=== PATIENT | female | born 1975 | race Caucasian/White ===

== ENCOUNTER → 2018-01-17 12:32 | Outpatient (CLI) | payer MEDICAID, SELFPAY ==
[2015-05-27 04:29] VITALS: BMI 27.1
[2018-01-17 13:15] LABS: Absolute Lymphocyte Count 1.61 X10^3/ul (0.83-4.51); Absolute Neutrophil Count 3.8 X10^3/uL (2.0-7.7); Basophil# 0.03 X10^3/uL; Basophil% 0.5 % (0-1); Eosinophil# 0.06 X10^3/uL; Hemoglobin 13.6 g/dl (12.0-15.0); Lymphocyte # 1.61 X10^3/ul (4.0); Lymphocyte % 27.2 % (19-41); Mean Corp Hgb Conc 33.2 g/gl (32-36); Mean Corpuscular Hgb 30.2 pg (27.0-32.0); Mean Corpuscular Volume 90.9 fL (81-99); Monocyte# 0.38 X10^3/uL; Monocyte% 6.4 % (0-10); Neutrophil # 3.83 X10^3/uL (2.7-7.7); Neutrophil % 64.9 % (47-70); POSITIVE COUNT NO; POSITIVE DIFFERENTIAL NO; POSITIVE MORPHOLOGY NO; Platelet Count 224 K/mm3 (150-450); RBC Distribution Width CV 12.7 % (11.6-14.6); RBC Distribution Width SD 41.9 fl (35.1-43.9); Red Blood Count 4.51 M/mm3 (4.2-5.4); White Blood Count 5.9 K/mm3 (4.4-11.0)
[2018-01-17 13:42] LABS: Hemoglobin A1c 5.2 % (4.2-6.3)
[2018-01-17 13:54] LABS: Vitamin D,25 Hydroxy 49.8 ng/mL (29.95-100.01)
[2018-01-17 14:17] LABS: Fibrinogen 301 mg/dl (203-444)
[2018-01-17 14:54] LABS: ALB/GLOB Ratio 1.1 RATIO (0.9-2.4); AST(SGOT) 16 U/L (15-37); Alanine Aminotransfer ALT/SGPT 22 U/L (13-56); Albumin, Serum 3.7 g/dL (3.2-5.0); Alkaline Phosphatase 46 U/L (45-117); Anion Gap 8 (5-15); BUN 13 mg/dL (7-18); CRP 7.01 mg/L (0.0-3.0); Calcium,Total 8.7 mg/dL (8.5-10.1); Chloride 108 mmol/L (98-107); Cholesterol 206 mg/dL (200); Creatinine, Serum 0.81 mg/dL (0.55-1.02); EST Glomerular Filtration Rate 83 mL/min (>60); Est Glom Filt Rate - Afr Amer 100 mL/min (>60); Estradiol 34.2 pg/mL; Ferritin 24 ng/mL (8-252); Free T3 2.2 pg/mL (2.18-3.98); Globulin 3.4 g/dL (2.2-4.2); Glucose 95 mg/dL (74-106); High Density Lipoprotein 47 mg/dL; Iron 100 ug/dL (50-170); Iron Binding Capacity,Total 308 ug/dL (250-450); Magnesium 1.9 mg/dL (1.6-2.6); Potassium 4.2 mmol/L (3.5-5.1); Protein, Total 7.1 g/dL (6.4-8.2); Sodium Level 142 mmol/L (136-145); T4 Free Direct 0.97 ng/dL (0.76-1.46); Thyroid Stim Hormone (TSH) 1.73 uIU/mL (0.358-3.74); Triglycerides 164 mg/dL; Uric Acid 5.5 mg/dL (2.6-6.0); Very Low Density Lipoprotein 33 mg/dL (5-40)
[2018-01-19 12:02] LABS: Thyroglobulin Antibody < 1.0 IU/mL (0.0-0.9); Thyroid Peroxidase AB 9 IU/mL (0-34)
--- OUTSIDE RECORDS SUMMARY | 2018-03-12 19:09 | XMS RPT_ITS ---
:1975 Author Organization [facility] Care Team Providers Name Role Phone BHAVIN, JANELLE Attending Unavailable BHAVIN, JANELLE Referring Unavailable Primay Care Physicia, No Primary Care Unavailable PROBLEMS PROBLEMS DATE TYPE CONDITION / CODE ATTENDING STATUS SOURCE 01/17/2018 Unknown E03.9 - BHAVIN, Active [place] Hypothyroidism, [facility] unspecified / Hospital E03.9(ICD-10) Repository 01/17/2018 Unknown E34.9 - Endocrine BHAVIN, Active [place] disorder, [facility] unspecified / Hospital E34.9(ICD-10) Repository 01/17/2018 Unknown E61.1 - Iron BHAVIN, 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1810 11.6-14.6 % Normal RDW CV 12.7 LAB L100.1820 35.1-43.9 fl Normal RDW SD 41.9 LAB L100.1900 150-450 K/mm3 Normal PLT 224 LAB L100.2000 6.2-12.0 fl Normal MPV 11.0 LAB L100.2100 47-70 % Normal NEUT% 64.9 LAB L100.2200 19-41 % Normal LY% 27.2 LAB L100.2300 0-10 % Normal MONO% 6.4 LAB L100.2400 0-5 % Normal EO% 1.0 LAB L100.2500 0-1 % Normal BASO% 0.5 LAB L100.2550 0.0-0.9 % Normal IM GRAN % 0.000 Result Comment: IG% - Immature Granulocytes (promyelocytes, myelocytes and metamyelocytes) > 1% indicates that a LEFT SHIFT is Present. LAB L100.2620 2.0-7.7 X10 3/uL Normal Absolute Neut 3.8 LAB L100.2720 0.83-4.51 X10 3/ul Normal Absolute Lymph 1.61 Performed By: #### L100.0100 #### [facility] [address] [place], [address] HEMOGLOBIN A1C Collected: 01/17/2018 Status: F Source: [place] 12:38 PM [facility] REPOSITORY TYPE CODE TESTS RESULT OUT OF RANGE REFERENCE UNITS LAB L501.9985 4.2-6.3 % Normal HGB A1C 5.2 Performed By: #### L501.9985 #### [facility] [address] [place], [address] VITAMIN D,25 HYDROXY Collected: 01/17/2018 Status: F Source: [place] 12:38 PM [facility] REPOSITORY TYPE CODE TESTS RESULT OUT OF RANGE REFERENCE UNITS LAB L506.1000 29.95-100.01 ng/mL Normal Vitamin D 49.8 25-OH Result Comment: Vitamin D 25(OH) Status Range Deficiency <20 ng/mL (50nmol/L) Insuffciency 20 - 30 ng/mL (50 - 75 nmol/L) Sufficiency 30 - 100 ng/mL (75 - 250 nmol/L) Toxicity >100 ng/mL (>250 nmol/L) Performed By: #### L506.1000, L509.3000, L509.4001, L509.6000 #### [facility] [address] [place], [address] TESTOSTERONE, SERUM TOTAL Collected: 01/17/2018 Status: F Source: [place] 12:38 PM [facility] REPOSITORY TYPE CODE TESTS RESULT OUT OF REFERENCE UNITS RANGE LAB L509.3000 ng/dL Testosterone Normal 25.15 Result Comment: NORMAL REFERENCE RANGES MALE AGE <50 123.06 - 813.86 ng/dL MALE AGE >50 89.98 - 780.10 ng/dL FEMALE PREMENOPAUSE AGE 21 - 60 9.01 - 47.94 ng/dL FEMALE POSTMENOPAUSE AGE 45 - 89 <7.00 - 45.62 ng/dL REFERENCE RANGE AND METHODOLOGY CHANGED 02/03/2017 Performed By: #### L506.1000, L509.3000, L509.4001, L509.6000 #### [facility] [address] [place], [address] PROGESTERONE LEVEL Collected: 01/17/2018 Status: F Source: [place] 12:38 PM [facility] REPOSITORY TYPE CODE TESTS RESULT OUT OF REFERENCE UNITS RANGE LAB L509.4001 See Comment ng/mL Progesterone Normal 0.50 Result Comment: Progesterone Reference Table: UNITS Female: Follicular 0.15 - 1.40 ng/mL Luteal 3.34 - 25.56 ng/mL Mid-luteal 4.44 - 28.03 ng/mL Postmenopausal 0.0 - 0.73 ng/mL : 1st Trimester 11.22 - 90.00 ng/mL 2nd Trimester 25.55 - 89.40 ng/mL 3rd Trimester 48.40 -422.50 ng/mL Performed By: #### L506.1000, L509.3000, L509.4001, L509.6000 #### [facility] [address] [place], [address] CORTISOL SERUM Collected: 01/17/2018 Status: F Source: [place] 12:38 PM [facility] REPOSITORY TYPE CODE TESTS RESULT OUT OF RANGE REFERENCE UNITS LAB L509.6000 3.09-22.40 ug/dL Normal CORTISOL 6.80 Result Comment: Adult (AM) 4.30 - 22.40 ug/dL Adult (PM) 3.09 - 16.66 ug/dL Performed By: #### L506.1000, L509.3000, L509.4001, L509.6000 #### [facility] [address] [place], [address] HOMOCYSTEINE Collected: 01/17/2018 Status: F Source: [place] 12:38 PM [facility] REPOSITORY TYPE CODE TESTS RESULT OUT OF REFERENCE UNITS RANGE LAB L503.8001 3.2-10.7 umol/L HOMOCYSTEINE Normal 6.0 Performed By: #### L503.8001 #### [facility] [address] [place], [address] FIBRINOGEN Collected: 01/17/2018 Status: F Source: [place] 12:38 PM [facility] REPOSITORY TYPE CODE TESTS RESULT OUT OF RANGE REFERENCE UNITS LAB L300.4700 203-444 mg/dl Normal FIB 301 Performed By: #### L300.4700 #### [facility] [address] [place], [address] COMPREHENSIVE METABOLIC Collected: 01/17/2018 Status: F Source: [facility] 12:38 PM [facility] REPOSITORY TYPE CODE TESTS RESULT OUT OF RANGE REFERENCE UNITS LAB L501.0100 74-106 mg/dL Normal GLU 95 Result Comment: Please note revised GLUCOSE reference range effective 2017. LAB L501.1000 7-18 mg/dL Normal BUN 13 LAB L501.1100 0.55-1.02 mg/dL Normal CREAT,SERUM 0.81 Result Comment: The validity of the calculated GFR AND GFRAA in patients over 70 years has not been determined. Clinical correlation is essential. LAB L501.1110 >60 mL/min Normal EST GFR 83 Result Comment: Non- GFR Calc LAB L501.1115 >60 mL/min Normal EST GFR - AA 100 Result Comment: GFR Calc LAB L501.1300 10-20 RATIO Normal BUN/CRE 16.0 LAB L501.1500 6.4-8.2 g/dL T Normal PROT 7.1 LAB L501.1800 3.2-5.0 g/dL Normal ALB 3.7 LAB L501.1950 2.2-4.2 g/dL Normal GLOB 3.4 LAB L501.2000 0.9-2.4 RATIO Normal A/G 1.1 LAB L501.2200 8.5-10.1 mg/dL CA Normal 8.7 LAB L501.4100 15-37 U/L Normal AST 16 LAB L501.4305 45-117 U/L Normal ALK P 46 LAB L501.4405 13-56 U/L Normal ALT 22 LAB L501.4600 0.20-1.00 mg/dL T Normal BILI 0.30 LAB L501.5300 136-145 mmol/L NA Normal 142 LAB L501.5600 3.5-5.1 mmol/L K Normal 4.2 LAB L501.5900 98-107 mmol/L High CL 108 LAB L501.6100 21.0-32.0 mmol/L Normal CO2 26.0 LAB L501.6200 5-15 Normal GAP 8 Performed By: #### L500.4050, L500.4100, L501.1400, L501.5200, L501.6710, L501.02651, L501.9520, L503.6075, L503.6150, L503.6550, L506.0400, L3300.1750 #### [facility] [address] [place], [address] LIPID PROFILE Collected: 01/17/2018 Status: F Source: [place] 12:38 PM [facility] REPOSITORY TYPE CODE TESTS RESULT OUT OF RANGE REFERENCE UNITS LAB L501.4900 200 mg/dL High CHOL 206 Result Comment: <200 mg/dL Desirable 200-240 mg/dL Borderline >240 mg/dL High Risk LAB L501.5000 mg/dL Normal TRIG 164 Result Comment: The drugs N-Acetylcysteine and Metamizole may falsely depress this assay. Serum Triglycerides Reference Interval Normal <150 mg/dL Borderline high 150 - 199 mg/dL High 200 - 499 mg/dL Very High > or = 500 mg/dL LAB L501.6400 mg/dL Normal HDL 47 Result Comment: The drugs N-Acetylcysteine and Metamizole may falsely depress this assay. Reference Range HDL <40 mg/dL Low HDL Cholesterol HDL >or= 60 mg/dL High HDL Cholesterol LAB L501.6500 0-130 mg/dL Normal LDL 126 LAB L501.6600 5-40 mg/dL Normal VLDL 33 Performed By: #### L500.4050, L500.4100, L501.1400, L501.5200, L501.6710, L501.46959, L501.9520, L503.6075, L503.6150, L503.6550, L506.0400, L3300.1750 #### [facility] [address] [place], [place], [address] URIC ACID Collected: 01/17/2018 Status: F Source: [place] 12:38 PM [facility] REPOSITORY TYPE CODE TESTS RESULT OUT OF RANGE REFERENCE UNITS LAB L501.1400 2.6-6.0 mg/dL Normal URIC 5.5 Result Comment: The drugs N-Acetylcysteine and Metamizole may falsely depress this assay. Performed By: #### L500.4050, L500.4100, L501.1400, L501.5200, L501.6710, L501.73699, L501.9520, L503.6075, L503.6150, L503.6550, L506.0400, L3300.1750 #### [facility] [address] [place], [place], [address] MAGNESIUM Collected: 01/17/2018 Status: F Source: [place] 12:38 PM [facility] REPOSITORY TYPE CODE TESTS RESULT OUT OF RANGE REFERENCE UNITS LAB L501.5200 1.6-2.6 mg/dL Normal MG 1.9 Performed By: #### L500.4050, L500.4100, L501.1400, L501.5200, L501.6710, L501.51687, L501.9520, L503.6075, L503.6150, L503.6550, L506.0400, L3300.1750 #### [facility] [address] [place], [place], [address] CRP Collected: 01/17/2018 Status: F Source: [place] 12:38 PM [facility] REPOSITORY TYPE CODE TESTS RESULT OUT OF RANGE REFERENCE UNITS LAB L501.6710 0.0-3.0 mg/L High 7.01 C-REACTIVE PROT Result Comment: C-Reactive Protein (CRP) provides useful information for the diagnosis, therapy and monitoring of inflammatory processes and associated diseases. For the evaluation of Relative Risk for Cardiovascular Disease, a High Sensitivity CRP (HSCRP) should be ordered. Performed By: #### L500.4050, L500.4100, L501.1400, L501.5200, L501.6710, L501.95227, L501.9520, L503.6075, L503.6150, L503.6550, L506.0400, L3300.1750 #### [facility] [address] [place], [place], [id number] FREE T3 Collected: 01/17/2018 Status: F Source: [place] 12:38 PM [facility] REPOSITORY TYPE CODE TESTS RESULT OUT OF RANGE REFERENCE UNITS LAB L501.82379 2.18-3.98 pg/mL Normal FREE T3 2.2 Performed By: #### L500.4050, L500.4100, L501.1400, L501.5200, L501.6710, L501.66617, L501.9520, L503.6075, L503.6150, L503.6550, L506.0400, L3300.1750 #### [facility] [address] [place], [place], [id number] THYROID STIM HORMONE Collected: 01/17/2018 Status: F Source: [place] ([facility]) 12:38 PM [facility] REPOSITORY TYPE CODE TESTS RESULT OUT OF RANGE REFERENCE UNITS LAB L501.9520 0.358-3.74 uIU/mL Normal TSH 1.73 Performed By: #### L500.4050, L500.4100, L501.1400, L501.5200, L501.6710, L501.44101, L501.9520, L503.6075, L503.6150, L503.6550, L506.0400, L3300.1750 #### [facility] [address] [place], [place], [address] IRON BINDING Collected: 01/17/2018 Status: F [facility]: [facility] 12:38 PM [facility] REPOSITORY TYPE CODE TESTS RESULT OUT OF RANGE REFERENCE UNITS LAB L503.6075 250-450 ug/dL Normal TIBC 308 Performed By: #### L500.4050, L500.4100, L501.1400, L501.5200, L501.6710, L501.65789, L501.9520, L503.6075, L503.6150, L503.6550, L506.0400, L3300.1750 #### [facility] [address] [place], [place], [address] IRON Collected: 01/17/2018 Status: F Source: [place] 12:38 PM [facility] REPOSITORY TYPE CODE TESTS RESULT OUT OF RANGE REFERENCE UNITS LAB L503.6150 50-170 ug/dL Normal IRON 100 Performed By: #### L500.4050, L500.4100, L501.1400, L501.5200, L501.6710, L501.73490, L501.9520, L503.6075, L503.6150, L503.6550, L506.0400, L3300.1750 #### [facility] [address] [place], [place], [address] FERRITIN Collected: 01/17/2018 Status: F Source: [place] 12:38 PM [facility] REPOSITORY TYPE CODE TESTS RESULT OUT OF RANGE REFERENCE UNITS LAB L503.6550 8-252 ng/mL Normal FERRITIN 24 Performed By: #### L500.4050, L500.4100, L501.1400, L501.5200, L501.6710, L501.08525, L501.9520, L503.6075, L503.6150, L503.6550, L506.0400, L3300.1750 #### [facility] [address] [place], [place], [id number] T4 FREE DIRECT Collected: 01/17/2018 Status: F Source: [place] 12:38 PM [facility] REPOSITORY TYPE CODE TESTS RESULT OUT OF RANGE REFERENCE UNITS LAB L506.0400 0.76-1.46 ng/dL Normal T4 FREE 0.97 DIRECT Performed By: #### L500.4050, L500.4100, L501.1400, L501.5200, L501.6710, L501.99183, L501.9520, L503.6075, L503.6150, L503.6550, L506.0400, L3300.1750 #### [facility] [address] [place], [place], [address] ESTRADIOL Collected: 01/17/2018 Status: F Source: [place] 12:38 PM [facility] REPOSITORY TYPE CODE TESTS RESULT OUT OF RANGE REFERENCE UNITS LAB L3300.1750 pg/mL Normal ESTRADIOL 34.2 Result Comment: NORMAL REFERENCE RANGES FEMALE FOLLICULAR 21.4 - 164.8 pg/mL MID-CYCLE PEAK 49.9 - 367.2 pg/mL LUTEAL 40.2 - 259.0 pg/mL POST-MENOPAUSAL ON MHT <11.0 - 462.1 pg/mL NOT ON MHT <11.0 - 58.3 pg/mL MALE <11.0 - 52.5 pg/mL NOTE: [facility] HAS CONFIRMED THE DRUG FULVETRANT (FASLODEX) MAY CAUSE FALSELY ELEVATED ESTRADIOL RESULTS WHEN USING THIS TEST METHOD. IF PATIENT IS TAKING FULVESTRANT AN ALTERNATIVE METHOD SHOULD BE USED TO DETERMINE ESTRADIOL CONCENTRATION. Performed By: #### L500.4050, L500.4100, L501.1400, L501.5200, L501.6710, L501.31865, L501.9520, L503.6075, L503.6150, L503.6550, L506.0400, L3300.1750 #### [facility] [address] [place], [place], [address] THYROID PEROXIDASE AB Collected: 01/17/2018 Status: F Source: [place] 12:38 PM [facility] REPOSITORY TYPE CODE TESTS RESULT OUT OF RANGE REFERENCE UNITS LAB L3300.6900 0-34 IU/mL Normal TPO AB 9 4264 Result Comment: Performed at: [facility] [id number] [place], [place] [id number] Farm Equipment Engine Mechanic: Paul Lawrence PhD, Phone: [phone] Performed By: #### L3300.6900, L3300.7027 #### [facility] (refer to report for specific site) refer to report for address and phone number THYROGLOBULIN ANTIBODY Collected: 01/17/2018 Status: F Source: [place] 12:38 PM [facility] REPOSITORY TYPE CODE TESTS RESULT OUT OF RANGE REFERENCE UNITS LAB L3300.7027 0.0-0.9 IU/mL Normal TG AB < 1.0 Result Comment: Thyroglobulin Antibody measured by Lisa [place] Methodology Performed By: #### L3300.6900, L3300.7027 #### [facility] (refer to report for specific site) refer to report for address and phone number PROGRESS Observed: 09/30/2017 Status: COMPLETED Source: [place] 5:17 PM [facility] HNO ID: [id number] Author: Michael Laurent (Aicha) Oleksandr Service: (none) Author Type: Nurse Practitioner Type: Progress Notes Filed: 09/30/2017 5:47 PM Note Text: Subjective HPI Patient presents with: Urinary Problem: x 2 days lower abdominal pain and dull lower back pain Denies dysuria, frequency or urgency Denies risk of STDs, fever, chills, sob, cough States hx of PCOS ROS All other reviewed and negative other than HPI. PAST MEDICAL HISTORY Diagnosis Date - Acute gastritis without mention of hemorrhage - Gastric ulcer, unspecified as acute or chronic, without mention of hemorrhage, perforation, or obstruction - Generalized anxiety disorder [id number] Anxiety, Generalized - PMH - PAST MEDICAL HISTORY OF ACID REFLUX - Unspecified constipation PAST SURGICAL HISTORY Procedure Laterality Date - DELIVERY ONLY 11/06/2011 , low transverse - CHG DELIVERY 07/11/2007 - COLONOSCOP W/ OR W/O BRS SPEC Colonoscopy - CORRECT BUNION,SIMPLE Bunion,bilaterally - EGD W/O BRS SPECIMEN W/BX 06/30/05 - SIGMOIDOSCOPY FLEX DIAG 06/30/05 ALLERGIES Patient has no known allergies. MEDICATIONS Gardner-3 Fatty Acids (FISH OIL) 500 mg ORAL Cap Take by mouth once daily. FAMILY HISTORY Problem Relation Age of Onset - Diabetes Mother - Diabetes Father - Cancer Maternal Grandmother unsure - Arthritis Mother - Hypertension Mother - Hypertension Father - Lipids Mother - Lipids Father - Stroke Paternal Grandmother - Prostate Cancer Father Social History Substance Use Topics - Smoking status: Never Smoker - Smokeless tobacco: Never Used - Alcohol use Yes Comment: occassionally,NOT WHILE Objective Physical Exam Constitutional: She is well-developed, well-nourished, and in no distress. Abdominal: There is tenderness in the right lower quadrant, suprapubic area and left lower quadrant. There is no rigidity, no rebound, no guarding, no CVA tenderness, no tenderness at McBurney's point and negative Pickering's sign. Nursing note and vitals reviewed. ASSESSMENT/PLAN: 1. Lower abdominal pain - ICD9: 789.09, ICD10: R10.30 (primary diagnosis) Etiology unclear Differential Diagnosis includes Ovarian cyst and UTI - Reviewed red flags when to seek care at local ED - Recommended f/u with lay out inspector EVERETT - Follow up in 3-5 days or sooner if worsening of symptoms - UA DIP, URINE (POC) 2. Acute midline low back pain without sciatica - ICD9: 724.2, ICD10: M54.5 - UA DIP, URINE (POC) Prescription instructions reviewed with patient as applicable. Patient advised if symptoms do not improve or if symptoms worsen sooner, to contact their primary care physician. Potential red flag symptoms discussed with the patient. Reviewed appropriate action plan to take if red flag symptoms occur. Patient agreeable to treatment plan. Michael Leggett APRN.AIRFL[employer] ATTENDANTS SUPERVISOR CNOV Observed: 09/30/2017 Status: COMPLETED Source: [place] 3:15 PM [facility] REPOSITORY Office Visit ([facility]) DOROTHY KILLIAN ([id number]) 1975 F Date Time Provider Department 09/30/17 3:15 PM MICHAEL LEGGETT (MILK ROUTE SUPERVISOR) [facility] During your visit today, we recorded the following information about you: Temperature Pulse Respiration Blood pressure 98.2 degrees 80/minute 18/minute 112/78 Weight 71.7 kg Michael Leggett APRN.TATIANNA 09/30/2017 5:47 PM Signed Subjective HPI Patient presents with: Urinary Problem: x 2 days lower abdominal pain and dull lower back pain Denies dysuria, frequency or urgency Denies risk of STDs, fever, chills, sob, cough States hx of PCOS ROS All other reviewed and negative other than HPI. PAST MEDICAL HISTORY Diagnosis Date - Acute gastritis without mention of hemorrhage - Gastric ulcer, unspecified as acute or chronic, without mention of hemorrhage, perforation, or obstruction - Generalized anxiety disorder [id number] Anxiety, Generalized - PMH - PAST MEDICAL HISTORY OF ACID REFLUX - Unspecified constipation PAST SURGICAL HISTORY Procedure Laterality Date - DELIVERY ONLY 11/06/2011 , low transverse - CHG DELIVERY 07/11/2007 - COLONOSCOP W/ OR W/O BRSH SPEC Colonoscopy - CORRECT BUNION,SIMPLE Bunion,bilaterally - EGD W/O BRSH SPECIMEN W/BX 06/30/05 - SIGMOIDOSCOPY FLEX DIAG 06/30/05 ALLERGIES Patient has no known allergies. MEDICATIONS Gardner-3 Fatty Acids (FISH OIL) 500 mg ORAL Cap Take by mouth once daily. FAMILY HISTORY Problem Relation Age of Onset - Diabetes Mother - Diabetes Father - Cancer Maternal Grandmother unsure - Arthritis Mother - Hypertension Mother - Hypertension Father - Lipids Mother - Lipids Father - Stroke Paternal Grandmother - Prostate Cancer Father Social History Substance Use Topics - Smoking status: Never Smoker - Smokeless tobacco: Never Used - Alcohol use Yes Comment: occassionally,NOT WHILE Objective Physical Exam Constitutional: She is well-developed, well-nourished, and in no distress. Abdominal: There is tenderness in the right lower quadrant, suprapubic area and left lower quadrant. There is no rigidity, no rebound, no guarding, no CVA tenderness, no tenderness at McBurney's point and negative Pickering's sign. Nursing note and vitals reviewed. ASSESSMENT/PLAN: 1. Lower abdominal pain - ICD9: 789.09, ICD10: R10.30 (primary diagnosis) Etiology unclear Differential Diagnosis includes Ovarian cyst and UTI - Reviewed red flags when to seek care at local ED - Recommended f/u with lay out inspector EVERETT - Follow up in 3-5 days or sooner if worsening of symptoms - UA DIP, URINE (POC) 2. Acute midline low back pain without sciatica - ICD9: 724.2, ICD10: M54.5 - UA DIP, URINE (POC) Prescription instructions reviewed with patient as applicable. Patient advised if symptoms do not improve or if symptoms worsen sooner, to contact their primary care physician. Potential red flag symptoms discussed with the patient. Reviewed appropriate action plan to take if red flag symptoms occur. Patient agreeable to treatment plan. Michael Leggett APRN.AIRFLIGHT ATTENDANTS SUPERVISOR Referring Provider: SELF [200] Allergies As of Date: 09/30/2017 (No Known Allergies) Date Reviewed: 09/30/2017 Reviewed by: Ashlyn Painting LPN - Fully Assessed Reason for Visit: Urinary Problem [252] Cmt: x 2 days lower abdominal pain and lower back pain Primary Visit Diagnosis:Lower abdominal pain [R10.30] Other Visit Diagnosis:Acute midline low back pain without sciatica [M54.5] Order(s):UA DIP, URINE (POC) [[id number]] Order #: [id number]. #:[id number] Prescriptions as of 09/30/2017 Sig: * OMEGA-3 FATTY ACIDS 500 MG CA* Take by mouth once daily. Problem List As Of Date 09/30/2017 Noted Resolved Stomach ulcer [K25.9] INVALID FOR*03/30/2011 Acute gastritis without mention of hemorrhage [*INVALID FOR*03/30/2011 CONSTIPATION NOS [K59.00] Fatigue [R53.83] INVALID FOR* PCOS (polycystic ovarian syndrome) [E28.2] INVALID FOR* PMDD (premenstrual dysphoric disorder) [F32.81] INVALID FOR* Insomnia [G47.00] INVALID FOR*03/30/2011 Enlarged uterus [N85.2] INVALID FOR*01/02/2011 Acid reflux [K21.9] INVALID FOR* Supervision of other normal [Z34.80] INVALID FOR*12/28/2011 Advanced maternal age in [[id number]] INVALID FOR*12/28/2011 Heart palpitations [R00.2] INVALID FOR* More... Disposition: Return if symptoms worsen or fail to improve. Follow-up and Disposition History Recorded Encounter Status:Closed by MICHAEL LEGGETT on 09/30/17 XR LUMBAR 3V Observed: 03/25/2017 Status: F Source: [place] AP/LAT/L5-S1 1:01 PM [facility] * * *Final Report* * * DATE OF EXAM: Mar 25 2017 1:01PM [id number] [id number] - XR LUMBAR 3V AP/LAT/L5-S1 / PROCEDURE REASON: cervical and lumbar * * * * Physician Interpretation * * * * EXAMINATION: XR CERVICAL 2V AP/LAT, XR LUMBAR 3V AP/LAT/L5-S1 HISTORY: Hx of scoliosis. Generalized neck pain that radiates to both shoulders without injury. (accession [id number]), Lower back pain without injury. Hx of scoli. (accession [id number]) cervical and lumbar. TECHNIQUE: XR CERVICAL 2V AP/LAT, XR LUMBAR 3V AP/LAT/L5-S1 Laterality: NOT APPLICABLE Number of different views (projections): 2 (accession [id number]), 3 (accession [id number]) M: XB_1 COMPARISON: None. RESULT: CERVICAL SPINE: Counting reference: Craniocervical junction. The vertebral bodies demonstrate normal height and alignment. Mild disc degenerative changes with small marginal osteophytes at C4- 5 and C5-6. There is also mild uncovertebral hypertrophy in the mid cervical spine. No significant facet arthropathy. There is no prevertebral soft tissue swelling. The visualized airways patent. LUMBAR SPINE: Counting reference: Lumbosacral junction. For the purpose of this report, L5-S1 is considered the last lumbar type intervertebral disc and L4-5 is the level of the iliac crests. There is levoscoliosis of the thoracolumbar spine. There is no evidence of acute fracture or subluxation. Multilevel facet arthropathy of the lower lumbar spine. The pedicles are symmetrically seen. IMPRESSION: 1. MILD DEGENERATIVE CHANGES OF THE CERVICAL SPINE. 2. LEVOSCOLIOSIS OF THE THORACOLUMBAR SPINE AND FACET ARTHROPATHY OF THE LOWER LUMBAR SPINE. Ground Water Technician: PSCShaun Transcribe Date/Time: Mar 25 2017 1:14P Dictated by : SHADI BURR MD This examination was interpreted and the report reviewed and electronically signed by: SHADI BURR MD on Mar 25 2017 1:19PM EST [id number] XR CERVICAL 2V Observed: 03/25/2017 Status: F Source: [place] AP/LAT 1:[address] [facility] REPOSITORY * * *Final Report* * * DATE OF EXAM: Mar 25 2017 1:01PM [id number] [id number] - XR CERVICAL 2V AP/LAT / PROCEDURE REASON: cervical and lumbar * * * * Physician Interpretation * * * * EXAMINATION: XR CERVICAL 2V AP/LAT, XR LUMBAR 3V AP/LAT/L5-S1 HISTORY: Hx of scoliosis. Generalized neck pain that radiates to both shoulders without injury. (accession [id number]), Lower back pain without injury. Hx of scoli. (accession [id number]) cervical and lumbar. TECHNIQUE: XR CERVICAL 2V AP/LAT, XR LUMBAR 3V AP/LAT/L5-S1 Laterality: NOT APPLICABLE Number of different views (projections): 2 (accession [id number]), 3 (accession [id number]) M: XB_1 COMPARISON: None. RESULT: CERVICAL SPINE: Counting reference: Craniocervical junction. The vertebral bodies demonstrate normal height and alignment. Mild disc degenerative changes with small marginal osteophytes at C4- 5 and C5-6. There is also mild uncovertebral hypertrophy in the mid cervical spine. No significant facet arthropathy. There is no prevertebral soft tissue swelling. The visualized airways patent. LUMBAR SPINE: Counting reference: Lumbosacral junction. For the purpose of this report, L5-S1 is considered the last lumbar type intervertebral disc and L4-5 is the level of the iliac crests. There is levoscoliosis of the thoracolumbar spine. There is no evidence of acute fracture or subluxation. Multilevel facet arthropathy of the lower lumbar spine. The pedicles are symmetrically seen. IMPRESSION: 1. MILD DEGENERATIVE CHANGES OF THE CERVICAL SPINE. 2. LEVOSCOLIOSIS OF THE THORACOLUMBAR SPINE AND FACET ARTHROPATHY OF THE LOWER LUMBAR SPINE. Ground Water Technician: PSCB Transcribe Date/Time: Mar 25 2017 1:14P Dictated by : SHADI BURR MD This examination was interpreted and the report reviewed and electronically signed by: SHADI BURR MD on Mar 25 2017 1:19PM EST [id number] PROGRESS Observed: 03/25/2017 Status: COMPLETED Source: [place] 12:[address] [facility] REPOSITORY HNO ID: [id number] Author: Adamaris Mckeon (Rt) Gracie Mcleod Service: (none) Author Type: Armorer Technician Type: Progress Notes Filed: 03/25/2017 12:59 PM Note Text: Radiology Service Progress Note PATIENT NAME: Dorothy Killian DATE OF SERVICE: March 25, 2017 TIME: 12:48 PM PATIENT IDENTITY VERIFICATION COMPLETED USING TWO (2) METHODS: Patient confirmed name verbally and Date of . PATIENT GENDER DATA: Female. status: : No status: NO. PATIENT RELEVANT IMPLANT DATA REVIEWED: Not Applicable RADIOLOGY DEPARTMENT: General X-ray: Exam(s) Completed: Spine X-Ray(s): Cervical AP / LAT and Lumbar AP / LAT / L5-S1 PERIPHERAL IV DATA: Not applicable SIGNED BY: RT Terell March 25, 2017 12:48 PM ALLERGIES ALLERGIES DATE TYPE / CODE NAME / CODE REACTION SEVERITY SOURCE 05/27/2015 Drug No Known Unknown [facility] Allergy/416 Allergies/H43181 [facility] 686172(SNOM 0388(RXNORM) Repository ED CT) Drug NO KNOWN [facility] Class/41379 ALLERGIES [place] [address]3(SNOMED Repository CT) ENCOUNTERS ENCOUNTERS ADMIT/DISCHARGE ACCOUNT ADMITTING ENCOUNTER LOCATION SOURCE NUMBER CLASS 01/17/2018 [id number] [facility] ing:LAB Repository 09/30/2017/10/02/19 [id number] Ambulatory [address] Repository 03/25/2017/03/31/19 [id number] Ambulatory [address] Repository PAYERS PAYERS ENCOUNTER GUARANTOR PAYER SUBSCRIBER SOURCE 01/17/2018 DARWIN KILLIAN192 Primary DOROTHY Barrett HOA WHIPPLE Insurance:LESLIPANCHITO VENANGODOB: [facility] Number: [id number] [id number]: [phone] Repository [phone] () Date:2018-01-17 [address]ATTN: [place] [address]ZT: 01/17/2018 [facility] Number: Effective Repository Date:2018-01-17
== END ==
PROVIDERS: Referring Provider Preventive Medicine Public Health & General Preventive Medicine; Visit Provider Preventive Medicine Public Health & General Preventive Medicine
DX: E03.9 Hypothyroidism, unspecified (principal); E34.9 Endocrine disorder, unspecified; E55.9 Vitamin D deficiency, unspecified; E61.1 Iron deficiency; N94.3 Premenstrual tension syndrome; E11.9 Type 2 diabetes mellitus without complications; I10 Essential (primary) hypertension; E27.49 Other adrenocortical insufficiency; E78.5 Hyperlipidemia, unspecified
CPT/HCPCS: 36415; 80053; 80061; 82306; 82533; 82670; 82728; 83036; 83090; 83540; 83550; 83735; 84144; 84403; 84439; 84443; 84481; 84550; 85025; 85384; 86140; 86376; 86800

== ENCOUNTER → 2018-06-13 09:30 | Outpatient (CLI) | payer MEDICAID, SELFPAY ==
[2015-05-27 04:29] VITALS: BMI 27.1
[2018-06-13 10:02] LABS: Absolute Lymphocyte Count 2.17 X10^3/ul (0.83-4.51); Absolute Neutrophil Count 3.3 X10^3/uL (2.0-7.7); Basophil# 0.03 X10^3/uL; Basophil% 0.5 % (0-1); Eosinophil# 0.05 X10^3/uL; Eosinophils% 0.9 % (0-5); Hematocrit 41.1 % (37-47); Hemoglobin 13.5 g/dl (12.0-15.0); Lymphocyte # 2.17 X10^3/ul (4.0); Lymphocyte % 36.9 % (19-41); Mean Corp Hgb Conc 32.8 g/gl (32-36); Mean Corpuscular Hgb 29.5 pg (27.0-32.0); Mean Corpuscular Volume 89.9 fL (81-99); Mean Platelet Vol. 10.2 fl (6.2-12.0); Monocyte% 5.1 % (0-10); Neutrophil # 3.32 X10^3/uL (2.7-7.7); Neutrophil % 56.4 % (47-70); Platelet Count 189 K/mm3 (150-450); RBC Distribution Width CV 12.9 % (11.6-14.6); Red Blood Count 4.57 M/mm3 (4.2-5.4); White Blood Count 5.9 K/mm3 (4.4-11.0)
[2018-06-13 10:04] LABS: POSITIVE COUNT NO; POSITIVE DIFFERENTIAL NO; POSITIVE MORPHOLOGY NO
[2018-06-13 10:21] LABS: Hemoglobin A1c 5.6 % (4.2-6.3)
[2018-06-13 10:27] LABS: Fibrinogen 257 mg/dl (203-444)
[2018-06-13 10:31] LABS: Vitamin B12 695 pg/mL (211-911); Vitamin D,25 Hydroxy 45.6 ng/mL (29.95-100.01)
[2018-06-13 10:48] LABS: Homocysteine 5.3 umol/L (3.2-10.7)
[2018-06-13 14:24] LABS: ALB/GLOB Ratio 1.2 RATIO (0.9-2.4); AST(SGOT) 15 U/L (15-37); Alanine Aminotransfer ALT/SGPT 21 U/L (13-56); Albumin, Serum 3.8 g/dL (3.2-5.0); Alkaline Phosphatase 43 U/L (45-117); Anion Gap 8 (5-15); BUN 15 mg/dL (7-18); BUN/Creat Ratio 19.6 RATIO (10-20); CRP < 2.90 mg/L (0.0-3.0); Calcium,Total 8.6 mg/dL (8.5-10.1); Chloride 109 mmol/L (98-107); Cholesterol 200 mg/dL (200); Creatinine, Serum 0.77 mg/dL (0.55-1.02); EST Glomerular Filtration Rate 88 mL/min (>60); Est Glom Filt Rate - Afr Amer 106 mL/min (>60); Ferritin 16 ng/mL (8-252); Free T3 2.4 pg/mL (2.18-3.98); Globulin 3.3 g/dL (2.2-4.2); Glucose 90 mg/dL (74-106); High Density Lipoprotein 52 mg/dL; Iron 90 ug/dL (50-170); Iron Binding Capacity,Total 313 ug/dL (250-450); Magnesium 2.1 mg/dL (1.6-2.6); Phosphorus 2.8 mg/dL (2.5-4.9); Potassium 4.1 mmol/L (3.5-5.1); Protein, Total 7.1 g/dL (6.4-8.2); Sodium Level 141 mmol/L (136-145); T4 Free Direct 0.91 ng/dL (0.76-1.46); Thyroid Stim Hormone (TSH) 1.56 uIU/mL (0.358-3.74); Triglycerides 95 mg/dL; Uric Acid 5.8 mg/dL (2.6-6.0); Very Low Density Lipoprotein 19 mg/dL (5-40)
[2018-06-17 12:59] LABS: Thyroglobulin Antibody < 1.0 IU/mL (0.0-0.9); Thyroid Peroxidase AB 9 IU/mL (0-34)
== END ==
PROVIDERS: Referring Provider Preventive Medicine Public Health & General Preventive Medicine; Visit Provider Preventive Medicine Public Health & General Preventive Medicine
DX: E03.9 Hypothyroidism, unspecified (principal); E34.9 Endocrine disorder, unspecified; E78.5 Hyperlipidemia, unspecified; E55.9 Vitamin D deficiency, unspecified; E53.8 Deficiency of other specified B group vitamins; E11.9 Type 2 diabetes mellitus without complications; E61.1 Iron deficiency; E63.9 Nutritional deficiency, unspecified
CPT/HCPCS: 36415; 80053; 80061; 82306; 82607; 82728; 82746; 83036; 83090; 83540; 83550; 83735; 84100; 84439; 84443; 84481; 84482; 84550; 85025; 85384; 86140; 86376; 86800

== ENCOUNTER → 2018-11-18 11:09 | Outpatient (CLI) | payer MEDICAID, SELFPAY ==
[2018-11-15 10:12] VITALS: BMI 27.1
[2018-11-18 11:48] LABS: Absolute Lymphocyte Count 2.05 X10^3/uL (0.83-4.51); Basophil# 0.02 X10^3/uL; Basophil% 0.4 % (0-1); Eosinophil# 0.05 X10^3/uL; Eosinophils% 0.9 % (0-5); Hemoglobin 12.8 g/dL (12.0-15.0); Lymphocyte # 2.05 X10^3/ul (4.0); Lymphocyte % 37.6 % (19-41); Mean Corpuscular Hgb 29.3 pg (27.0-32.0); Mean Corpuscular Volume 91.5 fL (81-99); Mean Platelet Vol. 10.3 fl (6.2-12.0); Monocyte# 0.29 X10^3/uL; Monocyte% 5.3 % (0-10); NRBC Flagged by Analyzer 0 % (0-5); Neutrophil # 3.03 X10^3/uL (2.7-7.7); Neutrophil % 55.6 % (47-70); Platelet Count 228 K/mm3 (150-450); RBC Distribution Width CV 12.1 % (11.6-14.6); RBC Distribution Width SD 40.9 fl (35.1-43.9); Red Blood Count 4.37 M/mm3 (4.2-5.4); White Blood Count 5.5 K/mm3 (4.4-11.0)
[2018-11-18 11:57] LABS: Fibrinogen 306 mg/dl (203-444)
[2018-11-18 12:17] LABS: Hemoglobin A1c 5.4 % (4.2-6.3)
[2018-11-18 12:21] LABS: Homocysteine 5.4 umol/L (3.2-10.7)
[2018-11-18 12:43] LABS: Vitamin D,25 Hydroxy 56.4 ng/mL (29.95-100.01)
[2018-11-18 12:54] LABS: ALB/GLOB Ratio 1.2 RATIO (0.9-2.4); AST(SGOT) 11 U/L (15-37); Alanine Aminotransfer ALT/SGPT 20 U/L (13-56); Albumin, Serum 3.9 g/dL (3.2-5.0); Alkaline Phosphatase 48 U/L (45-117); Anion Gap 6 (5-15); BUN 12 mg/dL (7-18); BUN/Creat Ratio 16.1 RATIO (10-20); CRP 3.52 mg/L (0.0-3.0); Calcium,Total 8.7 mg/dL (8.5-10.1); Chloride 107 mmol/L (98-107); Cholesterol 205 mg/dL (200); Creatinine, Serum 0.75 mg/dL (0.55-1.02); EST Glomerular Filtration Rate 90 mL/min (>60); Est Glom Filt Rate - Afr Amer 109 mL/min (>60); Ferritin 21 ng/mL (8-252); Free T3 2.5 pg/mL (2.18-3.98); Globulin 3.2 g/dL (2.2-4.2); Glucose 82 mg/dL (74-106); High Density Lipoprotein 51 mg/dL; Iron 80 ug/dL (50-170); Iron Binding Capacity,Total 320 ug/dL (250-450); Magnesium 1.8 mg/dL (1.6-2.6); Potassium 3.9 mmol/L (3.5-5.1); Protein, Total 7.1 g/dL (6.4-8.2); Sodium Level 141 mmol/L (136-145); T3 Uptake 36 % (30-39); T4 Free Direct 1.04 ng/dL (0.76-1.46); Thyroid Stim Hormone (TSH) 1.38 uIU/mL (0.358-3.74); Triglycerides 93 mg/dL; Very Low Density Lipoprotein 19 mg/dL (5-40)
[2018-11-22 08:43] LABS: Anti-Thyroglobulin AB < 1.0 IU/mL (0.0-0.9); Thyroglobulin, Serum Qt. 14.9 ng/mL (1.5-38.5); Thyroid Peroxidase AB 7 IU/mL (0-34)
== END ==
PROVIDERS: Referring Provider Preventive Medicine Public Health & General Preventive Medicine; Visit Provider Preventive Medicine Public Health & General Preventive Medicine
DX: E03.9 Hypothyroidism, unspecified (principal); E34.9 Endocrine disorder, unspecified; N94.3 Premenstrual tension syndrome; I10 Essential (primary) hypertension; E11.9 Type 2 diabetes mellitus without complications
CPT/HCPCS: 36415; 80053; 80061; 82306; 82728; 83036; 83090; 83540; 83550; 83735; 84432; 84439; 84443; 84479; 84481; 85025; 85384; 86140; 86376; 86800

== ENCOUNTER → 2019-06-30 10:09 | Outpatient (CLI) | payer MEDICAID, SELFPAY ==
[2019-04-05 11:26] VITALS: BMI 27.1
[2019-06-30 11:07] LABS: Absolute Lymphocyte Count 1.78 X10^3/uL (0.83-4.51); Absolute Neutrophil Count 4.1 X10^3/uL (2.0-7.7); Basophil# 0.04 X10^3/uL; Basophil% 0.6 % (0-1); Eosinophil# 0.04 X10^3/uL; Eosinophils% 0.6 % (0-5); Hematocrit 40.1 % (37-47); Hemoglobin 13.1 g/dL (12.0-15.0); Lymphocyte # 1.78 X10^3/ul (4.0); Lymphocyte % 27.9 % (19-41); Mean Corp Hgb Conc 32.7 g/dL (32-36); Mean Corpuscular Hgb 29.9 pg (27.0-32.0); Mean Corpuscular Volume 91.6 fL (81-99); Mean Platelet Vol. 10.7 fl (6.2-12.0); Monocyte# 0.38 X10^3/uL; NRBC Flagged by Analyzer 0 % (0-5); Neutrophil # 4.12 X10^3/uL (2.7-7.7); Neutrophil % 64.6 % (47-70); Platelet Count 213 K/mm3 (150-450); RBC Distribution Width SD 40.7 fl (35.1-43.9); Red Blood Count 4.38 M/mm3 (4.2-5.4); White Blood Count 6.4 K/mm3 (4.4-11.0)
[2019-06-30 11:18] LABS: Fibrinogen 254 mg/dl (203-444)
[2019-06-30 12:04] LABS: Hemoglobin A1c 5.3 % (4.2-6.3)
[2019-06-30 12:17] LABS: T3 Total - Triiodothyronine 1.18 ng/mL (0.6-1.81); Vitamin D,25 Hydroxy 75.5 ng/mL
[2019-06-30 15:29] LABS: Homocysteine 5.7 umol/L (3.2-10.7)
[2019-06-30 19:46] LABS: ALB/GLOB Ratio 1.1 RATIO (0.9-2.4); AST(SGOT) 16 U/L (15-37); Alanine Aminotransfer ALT/SGPT 30 U/L (13-56); Albumin, Serum 3.9 g/dL (3.2-5.0); Alkaline Phosphatase 42 U/L (45-117); Anion Gap 8 (5-15); BUN 14 mg/dL (7-18); BUN/Creat Ratio 19.9 RATIO (10-20); CRP 2.92 mg/L (0.0-3.0); Calcium,Total 8.7 mg/dL (8.5-10.1); Chloride 105 mmol/L (98-107); Cholesterol 207 mg/dL (200); EST Glomerular Filtration Rate 96 mL/min (>60); Est Glom Filt Rate - Afr Amer 116 mL/min (>60); Ferritin 20 ng/mL (8-252); Free T3 2.9 pg/mL (2.18-3.98); GGTP 15 U/L (5-55); Globulin 3.4 g/dL (2.2-4.2); Glucose 92 mg/dL (74-106); High Density Lipoprotein 52 mg/dL; Iron 74 ug/dL (50-170); Iron Binding Capacity,Total 321 ug/dL (250-450); LDH 173 U/L (84-246); Magnesium 1.9 mg/dL (1.6-2.6); Phosphorus 2.4 mg/dL (2.5-4.9); Potassium 3.9 mmol/L (3.5-5.1); Protein, Total 7.3 g/dL (6.4-8.2); Sodium Level 139 mmol/L (136-145); T3 Uptake 40 % (30-39); T4 Free Direct 0.97 ng/dL (0.76-1.46); T4 Total, Thyroxin 6.9 ug/dL (4.8-13.9); T7 / Free Thyroxin Index 2.8 (1.4-4.5); Thyroid Stim Hormone (TSH) 1.34 uIU/mL (0.358-3.74); Triglycerides 111 mg/dL; Uric Acid 5.3 mg/dL (2.6-6.0); Very Low Density Lipoprotein 22 mg/dL (5-40)
[2019-07-03 16:08] LABS: Immunoglobulin A 157 mg/dL (87-352); Immunoglobulin G 1043 mg/dL (586-1602); Immunoglobulin M 88 mg/dL (26-217)
[2019-07-03 20:54] LABS: Anti-Thyroglobulin AB < 1.0 IU/mL (0.0-0.9); T3 Reverse 19.2 ng/dL (9.2-24.1); Thyroglobulin, Serum Qt. 15.2 ng/mL (1.5-38.5); Thyroid Peroxidase AB < 9 IU/mL (0-34)
== END ==
PROVIDERS: PCP Internal Medicine
DX: E03.9 Hypothyroidism, unspecified (principal); E34.9 Endocrine disorder, unspecified; J30.5 Allergic rhinitis due to food; K59.00 Constipation, unspecified; R53.82 Chronic fatigue, unspecified
CPT/HCPCS: 36415; 80053; 80061; 82306; 82728; 82784; 82977; 83036; 83090; 83540; 83550; 83615; 83735; 84100; 84432; 84436; 84439; 84443; 84479; 84480; 84481; 84482; 84550; 85025; 85384; 86140; 86376; 86800

== ENCOUNTER → 2019-12-13 10:51 | Outpatient (CLI) | payer MEDICAID, SELFPAY ==
[2019-04-05 11:26] VITALS: BMI 27.1
[2019-12-13 11:31] LABS: Absolute Lymphocyte Count 1.56 X10^3/uL (0.83-4.51); Absolute Neutrophil Count 3.6 X10^3/uL (2.0-7.7); Basophil# 0.02 X10^3/uL; Basophil% 0.4 % (0-1); Eosinophil# 0.03 X10^3/uL; Eosinophils% 0.5 % (0-5); Hematocrit 41.4 % (37-47); Hemoglobin 13.3 g/dL (12.0-15.0); Lymphocyte # 1.56 X10^3/ul (4.0); Lymphocyte % 28.4 % (19-41); Mean Corp Hgb Conc 32.1 g/dL (32-36); Mean Corpuscular Hgb 29.2 pg (27.0-32.0); Mean Corpuscular Volume 90.8 fL (81-99); Mean Platelet Vol. 10.2 fl (6.2-12.0); Monocyte% 5.5 % (0-10); NRBC Flagged by Analyzer 0 % (0-5); Neutrophil # 3.57 X10^3/uL (2.7-7.7); Neutrophil % 64.8 % (47-70); Platelet Count 239 K/mm3 (150-450); RBC Distribution Width CV 12.6 % (11.6-14.6); RBC Distribution Width SD 41.9 fl (35.1-43.9); Red Blood Count 4.56 M/mm3 (4.2-5.4); White Blood Count 5.5 K/mm3 (4.4-11.0)
[2019-12-13 11:41] LABS: Fibrinogen 303 mg/dl (203-444)
[2019-12-13 12:11] LABS: T3 Total - Triiodothyronine 0.89 ng/mL (0.6-1.81); Vitamin B12 598 pg/mL (211-911)
[2019-12-13 12:22] LABS: Homocysteine 6.1 umol/L (3.2-10.7)
[2019-12-13 12:24] LABS: Hemoglobin A1c 5.3 % (3.8-5.6)
[2019-12-13 12:52] LABS: ALB/GLOB Ratio 1.1 RATIO (0.9-2.4); AST(SGOT) 16 U/L (15-37); Alanine Aminotransfer ALT/SGPT 23 U/L (13-56); Albumin, Serum 3.8 g/dL (3.2-5.0); Alkaline Phosphatase 48 U/L (45-117); Anion Gap 5 (5-15); BUN 15 mg/dL (7-18); BUN/Creat Ratio 20.8 RATIO (10-20); CRP, High Sensitivity Cardiac 2.75 mg/L; Calcium,Total 8.6 mg/dL (8.5-10.1); Chloride 106 mmol/L (98-107); Cholesterol 210 mg/dL (200); Creatinine, Serum 0.72 mg/dL (0.55-1.02); EST Glomerular Filtration Rate 94 mL/min (>60); Est Glom Filt Rate - Afr Amer 113 mL/min (>60); Ferritin 24 ng/mL (8-252); Globulin 3.4 g/dL (2.2-4.2); Glucose 91 mg/dL (74-106); High Density Lipoprotein 55 mg/dL; Iron 104 ug/dL (50-170); Iron Binding Capacity,Total 310 ug/dL (250-450); LDH 153 U/L (84-246); PERCENT IRON SATURATION 33.5 % (15.0-55.0); Phosphorus 2.8 mg/dL (2.5-4.9); Potassium 4.3 mmol/L (3.5-5.1); Protein, Total 7.2 g/dL (6.4-8.2); Sodium Level 138 mmol/L (136-145); T3 Uptake 40 % (30-39); T4 Free Direct 1.18 ng/dL (0.76-1.46); T4 Total, Thyroxin 8.8 ug/dL (4.8-13.9); T7 / Free Thyroxin Index 3.5 (1.4-4.5); Thyroid Stim Hormone (TSH) 1.15 uIU/mL (0.358-3.74); Triglycerides 71 mg/dL; Very Low Density Lipoprotein 14 mg/dL (5-40)
[2019-12-15 08:43] LABS: Copper, Serum or Plasma 103 ug/dL (72-166); Lipoprotein A <8.4 nmol/L (<75.0)
== END ==
DX: R53.82 Chronic fatigue, unspecified (principal); F32.9 Major depressive disorder, single episode, unspecified; E63.9 Nutritional deficiency, unspecified; J30.2 Other seasonal allergic rhinitis; G44.1 Vascular headache, not elsewhere classified
CPT/HCPCS: 36415; 80053; 80061; 82306; 82525; 82607; 82728; 82746; 83036; 83090; 83540; 83550; 83615; 83695; 83735; 83921; 84100; 84436; 84439; 84443; 84479; 84480; 85025; 85384; 86141

== ENCOUNTER → 2019-12-29 12:31 | Outpatient (CLI) | payer MEDICAID, SELFPAY ==
[2019-12-13 11:45] VITALS: BMI 27.8
--- NOTE | 2019-12-29 12:32 | STEWCON_ITS ---
Reason For Study: Chest Pain; Family HX of CAD Stress Results Protocol: Moses Protocol WITH DEFINITY Maximum Predicted HR: 177 bpm Target HR: 150 bpm % Maximum Predicted HR: 85 % DurationHeart Rate Stage (mm:ss) (bpm) BP Comment Baseline 74 128/78No Chest Pain; 3 ML Diluted Definity Moses Protocol Stage I 3:00 118 126/70No Chest Pain Moses Protocol Stage II 3:00 134 132/64No Chest Pain Moses Protocol Stage III 3:00 151 142/70No Chest Pain; Mild Dyspnea Recovery 99 122/80No Chest Pain Stress Duration: 9:00 mm:ss Maximum Stress HR: 151 bpm METS: 10 Baseline Echocardiogram Findings Stress Echo Wall motion Data Resting WM Intermediate WM Stress WM Interpretation Summary Exercise stress echo. 44-year-old lady with a history of family history of coronary artery disease. Stress EKG demonstrates normal sinus rhythm with a rate of 78 bpm resting blood pressure is 128/78 mmHg. Occasional premature ventricular complexes noted. The patient exercised according to regular Moses protocol for total duration of 9 minutes. The maximum heart rate attained was 169 bpm which was 95% of max impacted heart rate the maximum workload was 10.1 metabolic equivalents. At rest and peak exercise there were upsloping ST changes which did not meet the criteria for ischemia. Stress echocardiogram. Resting echocardiogram performed with Definity enhancement demonstrated an ejection fraction approximately 55%. At peak exercise there was thickening of all milan and reduction of low ventricular cavity size peaking at approximately 60%. No wall motion abnormalities were noted. Conclusion: Stress echo with no EKG changes for ischemia at a high workload. No clinical angina noted. Test terminated due to attainment of target heart rate. Good functional capacity. Ordering Physician: Gabino Alcaraz Referring Physician: Gabino Alcaraz Performed By: Irwin Rashid RCS
== END ==
PROVIDERS: Referring Provider Internal Medicine Cardiovascular Disease; Visit Provider Internal Medicine Cardiovascular Disease
DX: R07.9 Chest pain, unspecified (principal); R00.2 Palpitations
CPT/HCPCS: 93017; 93350; Q9957; A4216; C8928

== ENCOUNTER → 2020-06-19 09:01 | Outpatient (CLI) | payer MEDICAID, SELFPAY ==
[2019-12-13 11:45] VITALS: BMI 27.8
[2020-06-19 09:36] LABS: Absolute Lymphocyte Count 1.99 X10^3/uL (0.83-4.51); Absolute Neutrophil Count 3.9 X10^3/uL (2.0-7.7); Basophil# 0.04 X10^3/uL; Basophil% 0.6 % (0-1); Eosinophil# 0.05 X10^3/uL; Eosinophils% 0.8 % (0-5); Hematocrit 43.2 % (37-47); Hemoglobin 13.6 g/dL (12.0-15.0); Lymphocyte # 1.99 X10^3/ul (0.83-4.51); Lymphocyte % 31.3 % (19-41); Mean Corp Hgb Conc 31.5 g/dL (32-36); Mean Corpuscular Hgb 28.7 pg (27.0-32.0); Mean Corpuscular Volume 91.1 fL (81-99); Mean Platelet Vol. 10.5 fl (6.2-12.0); Monocyte# 0.35 X10^3/uL; Monocyte% 5.5 % (0-10); NRBC Flagged by Analyzer 0 % (0-5); Neutrophil # 3.91 X10^3/uL (2.7-7.7); Neutrophil % 61.5 % (47-70); Platelet Count 235 K/mm3 (150-450); RBC Distribution Width CV 12.1 % (11.6-14.6); RBC Distribution Width SD 40.5 fl (35.1-43.9); Red Blood Count 4.74 M/mm3 (4.2-5.4); White Blood Count 6.4 K/mm3 (4.4-11.0)
[2020-06-19 09:49] LABS: Fibrinogen 324 mg/dl (203-444)
[2020-06-19 09:56] LABS: Hemoglobin A1c 5.2 % (3.8-5.6)
[2020-06-19 10:12] LABS: Vitamin D,25 Hydroxy 68.3 ng/mL
[2020-06-19 10:22] LABS: Homocysteine 6.5 umol/L (3.2-10.7)
[2020-06-19 10:24] LABS: ALB/GLOB Ratio 1.1 RATIO (0.9-2.4); AST(SGOT) 10 U/L (15-37); Alanine Aminotransfer ALT/SGPT 19 U/L (13-56); Albumin, Serum 3.9 g/dL (3.2-5.0); Alkaline Phosphatase 51 U/L (45-117); Anion Gap 3 (5-15); BUN 14 mg/dL (7-18); BUN/Creat Ratio 17.2 RATIO (10-20); CRP 2.91 mg/L (0.0-3.0); Calcium,Total 8.8 mg/dL (8.5-10.1); Chloride 107 mmol/L (98-107); Cholesterol 212 mg/dL (200); Creatinine, Serum 0.82 mg/dL (0.55-1.02); EST Glomerular Filtration Rate 81 mL/min (>60); Est Glom Filt Rate - Afr Amer 98 mL/min (>60); Ferritin 33 ng/mL (8-252); Free T3 2.4 pg/mL (2.18-3.98); Globulin 3.5 g/dL (2.2-4.2); Glucose 96 mg/dL (74-106); High Density Lipoprotein 50 mg/dL; Iron 95 ug/dL (50-170); Iron Binding Capacity,Total 354 ug/dL (250-450); Magnesium 2.2 mg/dL (1.6-2.6); Potassium 3.9 mmol/L (3.5-5.1); Protein, Total 7.4 g/dL (6.4-8.2); Sodium Level 137 mmol/L (136-145); T4 Free Direct 1.02 ng/dL (0.76-1.46); Thyroid Stim Hormone (TSH) 1.54 uIU/mL (0.358-3.74); Triglycerides 120 mg/dL; Uric Acid 5.5 mg/dL (2.6-6.0); Very Low Density Lipoprotein 24 mg/dL (5-40)
[2020-06-21 20:13] LABS: Anti-Thyroglobulin AB < 1.0 IU/mL (0.0-0.9); Thyroglobulin, Serum Qt. 24.6 ng/mL (1.5-38.5); Thyroid Peroxidase AB < 9 IU/mL (0-34)
== END ==
PROVIDERS: PCP Preventive Medicine Public Health & General Preventive Medicine; Referring Provider Preventive Medicine Public Health & General Preventive Medicine; Visit Provider Preventive Medicine Public Health & General Preventive Medicine
DX: E03.9 Hypothyroidism, unspecified (principal); E34.8 Other specified endocrine disorders; E27.49 Other adrenocortical insufficiency; E78.5 Hyperlipidemia, unspecified; E55.9 Vitamin D deficiency, unspecified; E61.1 Iron deficiency; R65.10 Systemic inflammatory response syndrome (SIRS) of non-infectious origin without acute organ dysfunction
CPT/HCPCS: 36415; 80053; 80061; 82306; 82533; 82627; 82728; 83036; 83090; 83540; 83550; 83735; 84100; 84432; 84439; 84443; 84481; 84550; 85025; 85384; 86140; 86376; 86800; 82626

== ENCOUNTER 2021-03-05 09:09 | Outpatient (CLI) | payer MEDICAID, SELFPAY ==
[2021-03-05 09:31] LABS: Absolute Neutrophil Count 3.9 X10^3/uL (2.0-7.7); Basophil# 0.03 X10^3/uL; Basophil% 0.5 % (0-1); Eosinophil# 0.05 X10^3/uL; Eosinophils% 0.8 % (0-5); Hematocrit 40.4 % (37-47); Hemoglobin 13.4 g/dL (12.0-15.0); Lymphocyte % 28.2 % (19-41); Mean Corp Hgb Conc 33.2 g/dL (32-36); Mean Corpuscular Hgb 29.4 pg (27.0-32.0); Mean Corpuscular Volume 88.6 fL (81-99); Mean Platelet Vol. 10.7 fl (6.2-12.0); Monocyte# 0.55 X10^3/uL; Monocyte% 8.6 % (0-10); NRBC Flagged by Analyzer 0 % (0-5); Neutrophil # 3.94 X10^3/uL (2.7-7.7); Neutrophil % 61.6 % (47-70); Platelet Count 229 K/mm3 (150-450); RBC Distribution Width CV 12.4 % (11.6-14.6); RBC Distribution Width SD 40.1 fl (35.1-43.9); Red Blood Count 4.56 M/mm3 (4.2-5.4); White Blood Count 6.4 K/mm3 (4.4-11.0)
[2021-03-05 10:04] LABS: Vitamin B12 441 pg/mL (211-911); Vitamin D,25 Hydroxy 92.2 ng/mL
[2021-03-05 10:16] LABS: Homocysteine 4.9 umol/L (3.2-10.7)
[2021-03-05 10:32] LABS: Hemoglobin A1c 5.3 % (3.8-5.6)
[2021-03-05 10:47] LABS: ALB/GLOB Ratio 1.1 RATIO (0.9-2.4); AST(SGOT) 16 U/L (15-37); Alanine Aminotransfer ALT/SGPT 37 U/L (13-56); Albumin, Serum 3.7 g/dL (3.2-5.0); Alkaline Phosphatase 49 U/L (45-117); Anion Gap 7 (5-15); BUN 16 mg/dL (7-18); BUN/Creat Ratio 21.9 RATIO (10-20); CRP 6.31 mg/L (0.0-3.0); Calcium,Total 8.8 mg/dL (8.5-10.1); Chloride 105 mmol/L (98-107); Cholesterol 177 mg/dL (200); Creatinine, Serum 0.73 mg/dL (0.55-1.02); EST Glomerular Filtration Rate 91 mL/min (>60); Est Glom Filt Rate - Afr Amer 111 mL/min (>60); Ferritin 34 ng/mL (8-252); Free T3 2.9 pg/mL (2.18-3.98); Globulin 3.5 g/dL (2.2-4.2); Glucose 103 mg/dL (74-106); High Density Lipoprotein 49 mg/dL; Iron 110 ug/dL (50-170); Iron Binding Capacity,Total 312 ug/dL (250-450); Potassium 3.9 mmol/L (3.5-5.1); Protein, Total 7.2 g/dL (6.4-8.2); Sodium Level 140 mmol/L (136-145); T4 Free Direct 1.13 ng/dL (0.76-1.46); Thyroid Stim Hormone (TSH) 0.81 uIU/mL (0.358-3.74); Triglycerides 62 mg/dL; Uric Acid 5.9 mg/dL (2.6-6.0); Very Low Density Lipoprotein 12 mg/dL (5-40)
[2021-03-06 17:39] LABS: Anti-Thyroglobulin AB < 1.0 IU/mL (0.0-0.9); Thyroglobulin, Serum Qt. 11.1 ng/mL (1.5-38.5); Thyroid Peroxidase AB < 8 IU/mL (0-34)
== END 2021-03-05 23:59 | disposition short-term general hospital (02) ==
LOC: LAB 09:12
PROVIDERS: PCP Internal Medicine; Referring Provider Preventive Medicine Public Health & General Preventive Medicine; Visit Provider Preventive Medicine Public Health & General Preventive Medicine
DX: E03.9 Hypothyroidism, unspecified (principal); E27.49 Other adrenocortical insufficiency; E34.9 Endocrine disorder, unspecified; E55.9 Vitamin D deficiency, unspecified; E53.8 Deficiency of other specified B group vitamins; E66.9 Obesity, unspecified; E78.5 Hyperlipidemia, unspecified; E61.1 Iron deficiency
CPT/HCPCS: 36415; 80053; 80061; 82306; 82533; 82607; 82728; 82746; 83036; 83090; 83540; 83550; 84432; 84439; 84443; 84481; 84550; 85025; 86140; 86376; 86800

== ENCOUNTER 2021-04-03 09:19 | Outpatient (CLI) | payer MEDICAID, SELFPAY ==
[2021-04-03 10:03] LABS: CRP 3.06 mg/L (0.0-3.0); Troponin-I HS 3 pg/mL (3.0-54.0)
[2021-04-03 10:13] LABS: Homocysteine 5.9 umol/L (3.2-10.7)
[2021-04-04 18:36] LABS: Lipoprotein A <8.4 nmol/L (<75.0)
== END 2021-04-03 23:59 | disposition home or self-care (01) ==
PROVIDERS: PCP Internal Medicine; Referring Provider Preventive Medicine Public Health & General Preventive Medicine; Visit Provider Preventive Medicine Public Health & General Preventive Medicine
DX: I25.10 Atherosclerotic heart disease of native coronary artery without angina pectoris (principal); E03.9 Hypothyroidism, unspecified
CPT/HCPCS: 36415; 83090; 83695; 84484; 86140

== ENCOUNTER → 2021-06-25 | Outpatient (CLI) | payer MEDICAID, SELFPAY ==
[2021-06-25 09:44] LABS: Absolute Lymphocyte Count 1.82 X10^3/uL (0.83-4.51); Absolute Neutrophil Count 2.9 X10^3/uL (2.0-7.7); Basophil# 0.03 X10^3/uL; Basophil% 0.6 % (0-1); Eosinophil# 0.06 X10^3/uL; Eosinophils% 1.2 % (0-5); Hematocrit 43.3 % (37-47); Hemoglobin 14.1 g/dL (12.0-15.0); Lymphocyte # 1.82 X10^3/ul (0.83-4.51); Lymphocyte % 35.7 % (19-41); Mean Corp Hgb Conc 32.6 g/dL (32-36); Mean Corpuscular Hgb 29.5 pg (27.0-32.0); Mean Corpuscular Volume 90.6 fL (81-99); Mean Platelet Vol. 10.5 fl (6.2-12.0); Monocyte# 0.31 X10^3/uL; Monocyte% 6.1 % (0-10); NRBC Flagged by Analyzer 0 % (0-5); Neutrophil # 2.87 X10^3/uL (2.7-7.7); Neutrophil % 56.2 % (47-70); Platelet Count 255 K/mm3 (150-450); RBC Distribution Width CV 12.2 % (11.6-14.6); RBC Distribution Width SD 40.5 fl (35.1-43.9); Red Blood Count 4.78 M/mm3 (4.2-5.4); White Blood Count 5.1 K/mm3 (4.4-11.0)
[2021-06-25 10:06] LABS: Hemoglobin A1c 5.3 % (3.8-5.6)
[2021-06-25 10:09] LABS: Insulin 11.7 mU/L (2.6-37.6); T3 Total - Triiodothyronine 1.27 ng/mL (0.6-1.81); Vitamin B12 603 pg/mL (211-911); Vitamin D,25 Hydroxy 70.2 ng/mL
[2021-06-25 10:18] LABS: Homocysteine 5.5 umol/L (3.2-10.7)
[2021-06-25 10:28] LABS: AST(SGOT) 14 U/L (15-37); Alanine Aminotransfer ALT/SGPT 24 U/L (13-56); Albumin, Serum 3.8 g/dL (3.2-5.0); Alkaline Phosphatase 48 U/L (45-117); Anion Gap 4 (5-15); BUN 18 mg/dL (7-18); BUN/Creat Ratio 24.1 RATIO (10-20); CRP 4.61 mg/L (0.0-3.0); Calcium,Total 8.9 mg/dL (8.5-10.1); Chloride 108 mmol/L (98-107); Cholesterol 208 mg/dL (200); Creatinine, Serum 0.75 mg/dL (0.55-1.02); EST Glomerular Filtration Rate 89 mL/min (>60); Est Glom Filt Rate - Afr Amer 108 mL/min (>60); Ferritin 22 ng/mL (8-252); Free T3 2.9 pg/mL (2.18-3.98); GGTP 18 U/L (5-55); Globulin 3.7 g/dL (2.2-4.2); Glucose 103 mg/dL (74-106); High Density Lipoprotein 53 mg/dL; Iron 82 ug/dL (50-170); Iron Binding Capacity,Total 334 ug/dL (250-450); LDH 181 U/L (84-246); Phosphorus 2.8 mg/dL (2.5-4.9); Potassium 3.9 mmol/L (3.5-5.1); Protein, Total 7.5 g/dL (6.4-8.2); Sodium Level 140 mmol/L (136-145); T4 Free Direct 0.99 ng/dL (0.76-1.46); Thyroid Stim Hormone (TSH) 1.37 uIU/mL (0.358-3.74); Triglycerides 80 mg/dL; Uric Acid 5.3 mg/dL (2.6-6.0); Very Low Density Lipoprotein 16 mg/dL (5-40)
[2021-06-25 10:39] LABS: Fibrinogen 278 mg/dl (203-444)
[2021-07-02 18:21] LABS: T3 Reverse 18.4 ng/dL (9.2-24.1); Thyroglobulin Antibody < 1.0 IU/mL (0.0-0.9)
== END | disposition home or self-care (01) ==
PROVIDERS: PCP Internal Medicine
DX: R53.83 Other fatigue (principal); G47.00 Insomnia, unspecified; R00.2 Palpitations; F41.8 Other specified anxiety disorders; N94.3 Premenstrual tension syndrome; R14.0 Abdominal distension (gaseous); Z78.9 Other specified health status
CPT/HCPCS: 36415; 80053; 80061; 82306; 82533; 82607; 82728; 82977; 83036; 83090; 83525; 83540; 83550; 83615; 84100; 84439; 84443; 84480; 84481; 84482; 84550; 85025; 85384; 86140; 86800

== ENCOUNTER → 2021-10-10 | Outpatient (CLI) | payer MEDICAID, SELFPAY ==
[2021-10-10 11:00] LABS: Fibrinogen 298 mg/dl (203-444)
[2021-10-10 11:26] LABS: Homocysteine 6.3 umol/L (3.2-10.7)
[2021-10-10 11:37] LABS: Absolute Lymphocyte Count 1.95 X10^3/uL (0.83-4.51); Absolute Neutrophil Count 3.6 X10^3/uL (2.0-7.7); Basophil# 0.05 X10^3/uL; Basophil% 0.8 % (0-1); Eosinophil# 0.04 X10^3/uL; Eosinophils% 0.7 % (0-5); Hematocrit 43.2 % (37-47); Hemoglobin 14.6 g/dL (12.0-15.0); Lymphocyte # 1.95 X10^3/ul (0.83-4.51); Lymphocyte % 32.2 % (19-41); Mean Corp Hgb Conc 33.8 g/dL (32-36); Mean Corpuscular Hgb 30.3 pg (27.0-32.0); Mean Corpuscular Volume 89.6 fL (81-99); Mean Platelet Vol. 10.6 fl (6.2-12.0); Monocyte# 0.36 X10^3/uL; NRBC Flagged by Analyzer 0 % (0-5); Neutrophil # 3.63 X10^3/uL (2.7-7.7); Platelet Count 245 K/mm3 (150-450); RBC Distribution Width CV 12.4 % (11.6-14.6); RBC Distribution Width SD 41.3 fl (35.1-43.9); Red Blood Count 4.82 M/mm3 (4.2-5.4); White Blood Count 6.1 K/mm3 (4.4-11.0)
[2021-10-10 12:11] LABS: Insulin 10.5 mU/L (2.6-37.6); T3 Total - Triiodothyronine 1.23 ng/mL (0.6-1.81); Vitamin B12 609 pg/mL (211-911); Vitamin D,25 Hydroxy 62.2 ng/mL
[2021-10-10 12:59] LABS: Hemoglobin A1c 5.1 % (3.8-5.6)
[2021-10-10 13:44] LABS: ALB/GLOB Ratio 1.1 RATIO (0.9-2.4); AST(SGOT) 14 U/L (15-37); Alanine Aminotransfer ALT/SGPT 24 U/L (13-56); Albumin, Serum 3.9 g/dL (3.2-5.0); Alkaline Phosphatase 48 U/L (45-117); Anion Gap 6 (5-15); BUN 14 mg/dL (7-18); BUN/Creat Ratio 17.9 RATIO (10-20); CRP 4.57 mg/L (0.0-3.0); Calcium,Total 8.8 mg/dL (8.5-10.1); Chloride 107 mmol/L (98-107); Cholesterol 207 mg/dL (200); Creatinine, Serum 0.78 mg/dL (0.55-1.02); EST Glomerular Filtration Rate 84 mL/min (>60); Est Glom Filt Rate - Afr Amer 102 mL/min (>60); Ferritin 25 ng/mL (8-252); Free T3 2.9 pg/mL (2.18-3.98); GGTP 12 U/L (5-55); Globulin 3.7 g/dL (2.2-4.2); Glucose 93 mg/dL (74-106); High Density Lipoprotein 52 mg/dL; Iron 78 ug/dL (50-170); Iron Binding Capacity,Total 345 ug/dL (250-450); LDH 161 U/L (84-246); PERCENT IRON SATURATION 22.6 % (15.0-55.0); Phosphorus 2.8 mg/dL (2.5-4.9); Protein, Total 7.6 g/dL (6.4-8.2); Sodium Level 139 mmol/L (136-145); T4 Free Direct 0.95 ng/dL (0.76-1.46); Thyroid Stim Hormone (TSH) 0.99 uIU/mL (0.358-3.74); Triglycerides 104 mg/dL; Uric Acid 5.6 mg/dL (2.6-6.0); Very Low Density Lipoprotein 21 mg/dL (5-40)
[2021-10-19 14:14] LABS: Thyroglobulin Antibody < 1.0 IU/mL (0.0-0.9); Thyroid Peroxidase AB 11 IU/mL (0-34)
== END | disposition home or self-care (01) ==
PROVIDERS: PCP Internal Medicine
DX: R53.83 Other fatigue (principal); R00.2 Palpitations; R14.0 Abdominal distension (gaseous); G47.00 Insomnia, unspecified; F41.8 Other specified anxiety disorders; N94.3 Premenstrual tension syndrome; Z78.9 Other specified health status
CPT/HCPCS: 36415; 80053; 80061; 82306; 82533; 82607; 82627; 82728; 82977; 83036; 83090; 83525; 83540; 83550; 83615; 84100; 84439; 84443; 84480; 84481; 84482; 84550; 85025; 85384; 86140; 86376; 86800; 82626